=== PATIENT | male | born 1975 | race Caucasian/White ===

== ENCOUNTER 2024-02-13 00:08 | Inpatient (IN) | payer OTHER ==
[2024-02-13] VITALS (12 sets, daily range): BP systolic 88–110; BP diastolic 54–70; PULSE 79–97; RESP 13–25; TEMP 36.83628–37.2252; O2SAT 96–99
[~2024-02-13] VITALS: Ht 167.6 cm; Wt 67.8 kg
[2024-02-13 00:49] LABS: CHLORIDE 110 mEq/L (98-107); POTASSIUM 4.3 mEq/L (3.5-5.1); SODIUM 143 mEq/L (136-145)
[2024-02-13 00:50] LABS: CALCIUM 8.4 mg/dL (8.7-10.4); CARBON DIOXIDE 18 mEq/L (21-32)
[2024-02-13] MEDS: SODIUM CHLORIDE 0.9% 1,000 ML IV ONE ×2 (00:53→02:36)
[2024-02-13 00:55] LABS: CREATININE 1.2 mg/dL (0.6-1.3); ETHANOL BLOOD < 10 mg/dL (<10); GLUCOSE 399 mg/dL (70-105); UREA NITROGEN BLOOD 49 mg/dL (9-23)
[2024-02-13 00:56] LABS: TROPONIN I HIGH SENSITIVITY 17 ng/L (3.0-53)
[2024-02-13 01:02] LABS: LACTIC ACID 6.3 mmol/L (0.4-2.0)
[2024-02-13 01:04] LABS: INR 1.1; PARTIAL THROMBOPLASTIN TIME < 21.0 sec (23.4-31.0); PROTHROMBIN TIME 12.1 sec (9.6-11.0)
[2024-02-13] MEDS ORDERED: BLOOD SUGAR DIAGNOSTIC STRIP TEST PRN ×2 (02:00→05:00)
[2024-02-13] MEDS ORDERED: DEXTROSE 50% WATER 50ML SYRINGE IV PRN ×3 (02:00→14:15)
[2024-02-13 02:23] LABS: BG BASE EXCESS -5.2 mmol/L (-2.0-3.0); BG CARBOXYHEMOGLOBIN 2.1 % (0.5-1.5); BG DEOXYHEMOGLOBIN 3.7 % (0.0-5.0); BG FRACTION INSPIRED OXYGEN 21; BG HCO3 ACT 18.8 mmol/L (21.0-28.0); BG METHEMOGLOBIN 0.3 % (0.5-1.5); BG OXYGEN SATURATION 96.2 % (94.0-98.0); BG OXYHEMOGLOBIN 93.9 % (94.0-98.0); BG PCO2 28.7 mmHg (35.0-48.0); BG PH 7.434 (7.350-7.450); BG PO2 90.8 mmHg (83.0-108.0); BG SAMPLE SITE LEFT BRACHIAL; BG TOTAL HEMOGLOBIN 4.7 g/dL (13.5-17.5); BG VENT MODE ROOM AIR
[2024-02-13] MEDS: BLOOD SUGAR DIAGNOSTIC STRIP TEST SCH ×3 (02:32→18:08)
[2024-02-13] MEDS: INSULIN REGULAR 100U/100ML PMX 100 ML IV SCH (02:51)
[2024-02-13] MEDS: INSULIN REGULAR (HUMULIN R) 1000UNITS/10ML VIAL IV NR (02:58)
[2024-02-13 03:18] LABS: MEAN CORPUSCULAR HEMOGLOBIN 17.9 pg (28.0-32.0); MEAN CORPUSCULAR HGB CONC 26.7 g/dL (31.0-37.0); MEAN CORPUSCULAR VOLUME 67.3 fL (80.0-94.0); MEAN PLATELET VOLUME 8.3 fl (7.4-10.4); PLATELET 349 x1000/uL (130-400); RED BLOOD CELL COUNT 2.77 mill/uL (4.7-6.1); RED CELL DISTRIBUTION WIDTH 22.1 % (11.6-14.6); WHITE BLOOD COUNT 18.9 x1000/uL (4.5-11.0)
[2024-02-13] MEDS: SODIUM CHLORIDE 0.9% 1,000 ML IV SCH ×3 (03:20→05:00)
[2024-02-13 03:24] LABS: CHLORIDE 114 mEq/L (98-107); POTASSIUM 3.8 mEq/L (3.5-5.1); SODIUM 146 mEq/L (136-145)
[2024-02-13 03:25] LABS: CARBON DIOXIDE 19 mEq/L (21-32)
[2024-02-13 03:30] LABS: CREATININE 1.1 mg/dL (0.6-1.3); GLUCOSE 362 mg/dL (70-105); UREA NITROGEN BLOOD 52 mg/dL (9-23)
[2024-02-13 03:33] LABS: PHOSPHORUS 3.3 mg/dL (2.5-4.9)
[2024-02-13 03:40] LABS: CLARITY URINE CLEAR (CLEAR); COLOR URINE YELLOW (YELLOW); GLUCOSE URINE 3+ (NEGATIVE); KETONES URINE 1+ (NEGATIVE); LEUKOCYTE ESTERASE URINE TRACE (NEGATIVE); NITRITE URINE NEGATIVE (NEGATIVE); OCCULT BLOOD URINE NEGATIVE (NEGATIVE); PH URINE 5.5 (4.5-8.0); PROTEIN URINE NEGATIVE (NEGATIVE); SPECIFIC GRAVITY URINE 1.025 (1.005-1.030)
[2024-02-13 03:50] LABS: *AMPHETAMINES SCREEN URINE NEGATIVE (NEGATIVE); *BARBITURATES SCREEN URINE NEGATIVE (NEGATIVE); *BENZODIAZEPINES SCREEN URINE NEGATIVE (NEGATIVE); *COCAINE SCREEN URINE NEGATIVE (NEGATIVE); CANNABINOID URINE SCREEN NEGATIVE (NEGATIVE); ECSTASY MDMA SCREEN URINE NEGATIVE (NEGATIVE); METHADONE URINE SCREEN NEGATIVE (NEGATIVE); OPIATES URINE SCREEN NEGATIVE (NEGATIVE); PHENCYCLIDINE URINE SCREEN NEGATIVE (NEGATIVE)
[2024-02-13 04:01] LABS: ADD RBC MORPHOLOGY YES; HEMATOCRIT. 18.6 % (42.0-52.0)
[2024-02-13] MEDS ORDERED: VANCOMYCIN 1G PREMIX 200 ML IV NR (04:15)
[2024-02-13 04:26] LABS: PLATELET ESTIMATE NORMAL
[2024-02-13 04:33] LABS: ANISOCYTOSIS 3+; HYPOCHROMASIA 3+; MICROCYTOSIS 3+
[2024-02-13 04:58] LABS: RBC URINE 0-2 /hpf (0-2); SQUAMOUS EPITHELIAL CELL URINE NONE SEEN /lpf (RARE/1+)
[2024-02-13 04:59] LABS: BACTERIA URINE TRACE
[2024-02-13] MEDS ORDERED: SODIUM PHOSPHATE 15 MMOL in SODIUM CHLORIDE 0.9% 245 ML IV PRN (05:00)
[2024-02-13] MEDS: AZTREONAM 1 G in DEXTROSE 5% WATER 50 ML IV NR (05:00)
[2024-02-13] MEDS ORDERED: KCL 20MEQ/100ML PREMIX 100 ML IV PRN (05:00)
[2024-02-13] MEDS ORDERED: CLONIDINE 0.1MG TABLET PO PRN (05:00)
[2024-02-13] MEDS ORDERED: IPRATROPIUM/ALBUTEROL 0.5-3(2.5)MG/3ML NEB HHN PRN (05:00)
[2024-02-13] MEDS ORDERED: ONDANSETRON HCL 4MG/2ML INJ IV PRN (05:00)
[2024-02-13] MEDS ORDERED: ACETAMINOPHEN 325MG TABLET PO PRN ×2 (05:00)
[2024-02-13] MEDS ORDERED: MAGNESIUM 2 G PREMIX 50 ML IV PRN (05:00)
[2024-02-13] MEDS ORDERED: DOCUSATE SODIUM 100MG CAPSULE PO PRN (05:00)
[2024-02-13] MEDS ORDERED: POTASSIUM CHLORIDE 40 MEQ in SODIUM CHLORIDE 0.9% 230 ML IV PRN (05:00)
[2024-02-13] MEDS ORDERED: GUAIFENESIN 200MG/10ML SUGAR FREE UDC PO PRN (05:00)
[2024-02-13] MEDS: PANTOPRAZOLE SODIUM 40 MG/VIAL IV NR (05:02)
[2024-02-13] MEDS: KCL 20MEQ/100ML PREMIX 100 ML IV PRN (05:07)
[2024-02-13] MEDS: DEXT 5%/0.9% NACL 1,000 ML IV SCH (05:19)
[2024-02-13 05:51] LABS: CARBON DIOXIDE 21 mEq/L (21-32); CHLORIDE 119 mEq/L (98-107); POTASSIUM 3.9 mEq/L (3.5-5.1); SODIUM 150 mEq/L (136-145)
[2024-02-13 05:52] LABS: CALCIUM 7.9 mg/dL (8.7-10.4)
[2024-02-13 05:56] LABS: CREATININE 0.9 mg/dL (0.6-1.3); IRON 13 ug/dL (65-175)
[2024-02-13 05:57] LABS: LDL CHOLESTEROL 57 mg/dL (5-100); TRIGLYCERIDE 119 mg/dL (0-150); UREA NITROGEN BLOOD 47 mg/dL (9-23)
[2024-02-13 05:59] LABS: CHOLESTEROL 97 mg/dL (<200); HDL CHOLESTEROL 21 mg/dL (>55); TOTAL IRON BINDING CAPACITY 329 ug/dl (250-425)
[2024-02-13] MEDS ORDERED: PIPERACILLIN/TAZO 3.375G/50ML 50 ML IV SCH (06:00)
[2024-02-13 06:02] LABS: VITAMIN B12 SERUM 394 pg/mL (211-911)
[2024-02-13 06:40] LABS: BETA HYDROXYBUTYRATE 0.2 mMol/L (0.0-0.3)
[2024-02-13] MEDS: VANCOMYCIN 1.5GM/250ML IV NR (06:42)
[2024-02-13 06:49] LABS: GLUCOSE 196 mg/dL (70-105)
[2024-02-13] MEDS ORDERED: INSULIN GLARGINE 100 UNITS/ML SUBCUT NR (09:00)
[2024-02-13] MEDS: INSULIN GLARGINE 100 UNITS/ML SUBCUT NR (09:12)
[2024-02-13] MEDS: PANTOPRAZOLE SODIUM 40 MG/VIAL IV SCH (09:12)
[2024-02-13 11:54] LABS: CHLORIDE 118 mEq/L (98-107); POTASSIUM 3.8 mEq/L (3.5-5.1); SODIUM 148 mEq/L (136-145)
[2024-02-13 11:55] LABS: CARBON DIOXIDE 20 mEq/L (21-32)
[2024-02-13 11:56] LABS: HEMATOCRIT 22.5 % (42.0-52.0); HEMOGLOBIN 6.4 g/dL (14.0-18.0)
[2024-02-13 12:02] LABS: CREATINE KINASE 107 IU/L (46-171); CREATINE KINASE MB FRACTION 1.4 ng/mL (0.5-3.6); PHOSPHORUS 2.4 mg/dL (2.5-4.9); TROPONIN I HIGH SENSITIVITY 13 ng/L (3.0-53)
[2024-02-13] MEDS: VANCOMYCIN 1GM/200ML PMX (BAXTER) IV SCH (17:01)
[2024-02-13] MEDS: SUCRALFATE 1G TABLET PO SCH (17:02)
[2024-02-13] MEDS: POTASSIUM PHOSPHATE 15 MMOL in DEXT 5% WATER 245 ML IV SCH (18:08)
[2024-02-13] MEDS: IRON SUCROSE COMPLEX 100 MG/5 ML ML IV SCH (18:08)
[2024-02-13] MEDS: SODIUM CHLORIDE 0.45% 1,000 ML IV SCH (18:12)
[2024-02-13] MEDS: INSULIN LISPRO 100 UNITS/ML SUBCUT SCH (18:13)
[2024-02-13] MEDS: AZTREONAM 1G in DEXTROSE 5% WATER 50ML IV SCH (20:47)
[2024-02-13 22:08] LABS: CHLORIDE 118 mEq/L (98-107); POTASSIUM 4.1 mEq/L (3.5-5.1); SODIUM 147 mEq/L (136-145)
[2024-02-13 22:09] LABS: CALCIUM 8.2 mg/dL (8.7-10.4); CARBON DIOXIDE 21 mEq/L (21-32)
[2024-02-13 22:14] LABS: CREATININE 0.7 mg/dL (0.6-1.3); GLUCOSE 278 mg/dL (70-105); UREA NITROGEN BLOOD 21 mg/dL (9-23)
[2024-02-13 22:15] LABS: CREATINE KINASE MB FRACTION 1.1 ng/mL (0.5-3.6)
[2024-02-13 22:16] LABS: ALANINE AMINOTRANSFERASE 19 IU/L (10-49); ALBUMIN 3.1 g/dL (3.2-4.8); ASPARTATE AMINOTRANSFERASE 18 IU/L (<34); BILIRUBIN DIRECT 0.4 mg/dL (<=3.0); PHOSPHORUS 2.7 mg/dL (2.5-4.9)
[2024-02-13 22:17] LABS: BILIRUBIN TOTAL 1.1 mg/dL (0.1-1.0); PROTEIN TOTAL 5.4 g/dL (6.0-8.3)
[2024-02-13 22:22] LABS: HEMATOCRIT 24.7 % (42.0-52.0); HEMOGLOBIN 7.5 g/dL (14.0-18.0); MEAN CORPUSCULAR HEMOGLOBIN 22.7 pg (28.0-32.0); MEAN CORPUSCULAR HGB CONC 30.4 g/dL (31.0-37.0); MEAN CORPUSCULAR VOLUME 74.6 fL (80.0-94.0); PLATELET 245 x1000/uL (130-400); RED BLOOD CELL COUNT 3.31 mill/uL (4.7-6.1); RED CELL DISTRIBUTION WIDTH 24.2 % (11.6-14.6); WHITE BLOOD COUNT 15.8 x1000/uL (4.5-11.0)
[2024-02-14] VITALS (16 sets, daily range): BP systolic 93–123; BP diastolic 56–85; PULSE 75–106; RESP 15–30; TEMP 36.28068–37.66968; O2SAT 94–98
[2024-02-14] MEDS: INSULIN LISPRO 100 UNITS/ML SUBCUT SCH (09:43)
[2024-02-14] MEDS: LACTATED RINGERS 1,000 ML IV SCH (09:43)
[2024-02-14 12:55] LABS: CHLORIDE 113 mEq/L (98-107); POTASSIUM 3.5 mEq/L (3.5-5.1); SODIUM 143 mEq/L (136-145)
[2024-02-14 12:56] LABS: CARBON DIOXIDE 21 mEq/L (21-32)
[2024-02-14 13:01] LABS: CREATININE 0.6 mg/dL (0.6-1.3); GLUCOSE 235 mg/dL (70-105)
[2024-02-14 13:02] LABS: UREA NITROGEN BLOOD 15 mg/dL (9-23)
[2024-02-14 13:04] LABS: PHOSPHORUS 2.2 mg/dL (2.5-4.9)
[2024-02-14 13:19] LABS: HEMATOCRIT 24.4 % (42.0-52.0); HEMOGLOBIN 7.2 g/dL (14.0-18.0); MEAN CORPUSCULAR HEMOGLOBIN 22.5 pg (28.0-32.0); MEAN CORPUSCULAR HGB CONC 29.6 g/dL (31.0-37.0); MEAN CORPUSCULAR VOLUME 76.1 fL (80.0-94.0); PLATELET 195 x1000/uL (130-400); RED CELL DISTRIBUTION WIDTH 24.4 % (11.6-14.6); WHITE BLOOD COUNT 13.3 x1000/uL (4.5-11.0)
[2024-02-14] MEDS: AZTREONAM 2GM in DEXTROSE 5% WATER 100ML IV SCH (14:41)
[2024-02-14 22:11] LABS: HEMATOCRIT 30.6 % (42.0-52.0); HEMOGLOBIN 9.5 g/dL (14.0-18.0)
[2024-02-14] MEDS: VANCOMYCIN 1GM/200ML PMX (BAXTER) IV SCH (22:25)
[2024-02-14] MEDS: INSULIN GLARGINE 100 UNITS/ML SUBCUT SCH (22:27)
[2024-02-15] VITALS (10 sets, daily range): BP systolic 94–121; BP diastolic 51–92; PULSE 79–102; RESP 16–25; TEMP 36.44736–37.33632; O2SAT 92–97
[2024-02-15 04:33] LABS: HEMATOCRIT 27.8 % (42.0-52.0); HEMOGLOBIN 8.7 g/dL (14.0-18.0); MEAN CORPUSCULAR HEMOGLOBIN 24.2 pg (28.0-32.0); MEAN CORPUSCULAR HGB CONC 31.2 g/dL (31.0-37.0); MEAN CORPUSCULAR VOLUME 77.5 fL (80.0-94.0); PLATELET 200 x1000/uL (130-400); RED BLOOD CELL COUNT 3.58 mill/uL (4.7-6.1); RED CELL DISTRIBUTION WIDTH 25.1 % (11.6-14.6)
[2024-02-15 04:38] LABS: CHLORIDE 112 mEq/L (98-107); POTASSIUM 3.3 mEq/L (3.5-5.1); SODIUM 144 mEq/L (136-145)
[2024-02-15 04:39] LABS: CALCIUM 8.1 mg/dL (8.7-10.4); CARBON DIOXIDE 24 mEq/L (21-32)
[2024-02-15 04:44] LABS: CREATININE 0.6 mg/dL (0.6-1.3); GLUCOSE 161 mg/dL (70-105); UREA NITROGEN BLOOD 8 mg/dL (9-23)
[2024-02-15 04:45] LABS: VANCOMYCIN TROUGH 11.8 ug/mL (5.0-10.0)
[2024-02-15] MEDS: POTASSIUM CHLORIDE 20MEQ/PACKET PO NR ×2 (08:24→09:27)
[2024-02-15] MEDS: VANCOMYCIN 1.25GM PMX (XELLIA) 250 ML IV SCH (09:27)
[2024-02-16] VITALS: BP 117/65; PULSE 92; RESP 17; TEMP 37.11408; O2SAT 99
[2024-02-16 04:00] VITALS: BP 113/64; PULSE 89; RESP 18; TEMP 36.55848; O2SAT 95
[2024-02-16 07:48] LABS: INR 0.9; PROTHROMBIN TIME 10.5 sec (9.6-11.0)
[2024-02-16 07:52] LABS: HEMATOCRIT. 31.7 % (42.0-52.0); HEMOGLOBIN. 9.7 g/dL (14.0-18.0); MEAN CORPUSCULAR HEMOGLOBIN 24.6 pg (28.0-32.0); MEAN CORPUSCULAR HGB CONC 30.7 g/dL (31.0-37.0); MEAN CORPUSCULAR VOLUME 80.3 fL (80.0-94.0); MEAN PLATELET VOLUME 9.3 fl (7.4-10.4); PLATELET 226 x1000/uL (130-400); RED BLOOD CELL COUNT 3.95 mill/uL (4.7-6.1); RED CELL DISTRIBUTION WIDTH 25.8 % (11.6-14.6)
[2024-02-16 07:56] LABS: CARBON DIOXIDE 21 mEq/L (21-32); CHLORIDE 110 mEq/L (98-107); POTASSIUM 3.2 mEq/L (3.5-5.1); SODIUM 143 mEq/L (136-145)
[2024-02-16 07:57] LABS: CALCIUM 8.7 mg/dL (8.7-10.4)
[2024-02-16 08:00] VITALS: BP 132/82; PULSE 89; RESP 25; TEMP 36.6696; O2SAT 97
[2024-02-16 08:02] LABS: CREATININE 0.6 mg/dL (0.6-1.3); GLUCOSE 113 mg/dL (70-105); UREA NITROGEN BLOOD 7 mg/dL (9-23)
[2024-02-16 08:03] LABS: ALANINE AMINOTRANSFERASE 22 IU/L (10-49)
[2024-02-16 08:04] LABS: ALBUMIN 3.4 g/dL (3.2-4.8); ASPARTATE AMINOTRANSFERASE 27 IU/L (<34); BILIRUBIN TOTAL 0.9 mg/dL (0.1-1.0); PROTEIN TOTAL 5.7 g/dL (6.0-8.3)
[2024-02-16 08:15] LABS: DIFFERENTIAL COMMENT 1
[2024-02-16] MEDS: KCL 20MEQ/100ML PREMIX 100 ML IV NR (10:00)
[2024-02-16 12:00] VITALS: BP 115/79; PULSE 92; RESP 14; TEMP 36.83628; O2SAT 98
[2024-02-16 13:56] LABS: ANISOCYTOSIS 3+; NUCLEATED RED BLOOD CELLS 55 /100 WBC; PLATELET ESTIMATE NORMAL
[2024-02-16] MEDS ORDERED: LIDOCAINE HCL 1% 20ML VIAL ONE (14:13)
[2024-02-16] MEDS ORDERED: PROPOFOL 200MG/20ML VIAL IV ONE ×3 (14:14→14:41)
[2024-02-16] MEDS ORDERED: SIMETHICONE 40 MG/0.6 ML 15ML ONE (14:30)
[2024-02-16 16:00] VITALS: PULSE 89; RESP 18; TEMP 37.33632; O2SAT 98
[2024-02-16] MEDS: METOCLOPRAMIDE HCL 10MG/2ML VIAL IV SCH (17:17)
[2024-02-16] MEDS ORDERED: SUCRALFATE 1G TABLET PO SCH (17:30)
[2024-02-16 20:00] VITALS: BP 108/72; PULSE 77; RESP 17; TEMP 36.89184; O2SAT 100
[2024-02-17] VITALS: BP 112/81; PULSE 67; RESP 17; TEMP 36.9474; O2SAT 100
[2024-02-17 04:00] VITALS: BP 109/65; PULSE 98; RESP 15; TEMP 36.9474; O2SAT 98
[2024-02-17 08:00] VITALS: BP 104/62; PULSE 76; RESP 16; TEMP 36.61404; O2SAT 94
[2024-02-17 08:46] LABS: HEMATOCRIT. 28.6 % (42.0-52.0); HEMOGLOBIN. 8.5 g/dL (14.0-18.0); MEAN CORPUSCULAR HGB CONC 29.7 g/dL (31.0-37.0); MEAN CORPUSCULAR VOLUME 81.1 fL (80.0-94.0); MEAN PLATELET VOLUME 9.3 fl (7.4-10.4); PLATELET 246 x1000/uL (130-400); RED BLOOD CELL COUNT 3.53 mill/uL (4.7-6.1); RED CELL DISTRIBUTION WIDTH 25.5 % (11.6-14.6)
[2024-02-17 08:47] LABS: CARBON DIOXIDE 23 mEq/L (21-32); CHLORIDE 111 mEq/L (98-107); POTASSIUM 3.3 mEq/L (3.5-5.1); SODIUM 142 mEq/L (136-145)
[2024-02-17 08:48] LABS: CALCIUM 7.9 mg/dL (8.7-10.4)
[2024-02-17 08:52] LABS: CREATININE 0.5 mg/dL (0.6-1.3)
[2024-02-17 08:53] LABS: GLUCOSE 122 mg/dL (70-105); UREA NITROGEN BLOOD 9 mg/dL (9-23)
[2024-02-17 09:47] LABS: DIFFERENTIAL COMMENT 1
[2024-02-17] MEDS ORDERED: POTASSIUM CHLORIDE 20MEQ/PACKET PO SCH (10:00)
[2024-02-17] MEDS ORDERED: CARVEDILOL 3.125 MG TABLET PO NR (11:00)
[2024-02-17] MEDS ORDERED: SUCR1TAB PO (11:14)
[2024-02-17] MEDS ORDERED: PROT40 PO (11:14)
[2024-02-17] MEDS ORDERED: COR3 PO (11:14)
[2024-02-17 12:29] VITALS: BP 117/91; PULSE 81; TEMP 98.4; O2SAT 96
[2024-02-17] MEDS ORDERED: CARVEDILOL 3.125 MG TABLET PO SCH (21:00)
[2024-02-18 09:15] LABS: ANISOCYTOSIS 4+; HYPOCHROMASIA 2+; NUCLEATED RED BLOOD CELLS 23 /100 WBC
[2024-02-18 09:16] LABS: TARGET CELLS FEW
[2024-02-18 09:17] LABS: MICROCYTOSIS 1+
[2024-02-18 09:18] LABS: PLATELET ESTIMATE NORMAL
== END 2024-02-17 14:45 | disposition home or self-care (01) | DRG 871 ==
LOC: ER 00:51 → 5EST 01:56 → EDBEDREQSVC 02:02 → EDBEDREQ 02:02 → EDBEDREQTM 02:02 → EDBEDREQSVC 12:22
PROVIDERS: ADMIT Hospitalist; ATTEND Hospitalist
PROC: 30233N1 Transfusion of Nonautologous Red Blood Cells into Peripheral Vein, Percutaneous Approach (ICD-10-PCS; 2024-02-13)
PROC: 0DB38ZX Excision of Lower Esophagus, Via Natural or Artificial Opening Endoscopic, Diagnostic (ICD-10-PCS; principal; 2024-02-16)
PROC: 0DB78ZX Excision of Stomach, Pylorus, Via Natural or Artificial Opening Endoscopic, Diagnostic (ICD-10-PCS; 2024-02-16)
PROC: 06L38CZ Occlusion of Esophageal Vein with Extraluminal Device, Via Natural or Artificial Opening Endoscopic (ICD-10-PCS; 2024-02-16)
DX: A41.9 Sepsis, unspecified organism (principal); E11.10 Type 2 diabetes mellitus with ketoacidosis without coma; R65.21 Severe sepsis with septic shock; K29.71 Gastritis, unspecified, with bleeding; I85.11 Secondary esophageal varices with bleeding; E87.4 Mixed disorder of acid-base balance; K76.6 Portal hypertension; N39.0 Urinary tract infection, site not specified; D62 Acute posthemorrhagic anemia; E46 Unspecified protein-calorie malnutrition; C22.8 Malignant neoplasm of liver, primary, unspecified as to type; E87.0 Hyperosmolality and hypernatremia; D18.00 Hemangioma unspecified site; E87.6 Hypokalemia; K74.60 Unspecified cirrhosis of liver; K59.00 Constipation, unspecified; K31.89 Other diseases of stomach and duodenum; E86.0 Dehydration; K76.9 Liver disease, unspecified; E83.39 Other disorders of phosphorus metabolism; Z79.4 Long term (current) use of insulin; Z90.49 Acquired absence of other specified parts of digestive tract; Z88.0 Allergy status to penicillin; Z90.81 Acquired absence of spleen; Z91.148 Patient's other noncompliance with medication regimen for other reason; Z79.899 Other long term (current) drug therapy; Z68.30 Body mass index [BMI] 30.0-30.9, adult
CPT/HCPCS: 36415; 36600; 71045; 76700; 80048; 80051; 80053; 80061; 80076; 80202; 80305; 80320; 81003; 82010; 82270; 82375; 82550; 82553; 82607; 82746; 82805; 82962; 83036; 83540; 83550; 83605; 83615; 83735; 83880; 83930; 84100; 84145; 84484; 85014; 85018; 85025; 85027; 85044; 86850; 86900; 86920; 87106; 88305; 88312; 88313; 93005; 93970; 99291; A4606; J1815; J2405; J2470; J2704; J2765; J3370; J3480; J3490; J7030; J7060; J7120; P9016; G0480